=== PATIENT | female | born 1945 ===

== ENCOUNTER 2017-08-10 15:55 | Emergency (ER) | payer OTHER ==
[~2017-08-10] VITALS: Ht 162.6 cm; Wt 43.1 kg
[~2017-08-10 15:55] MED LIST: COZAAR25 MG; DIABETA2.5 MG; ETODOLAC400 MG; INTEGRA PLUS CAPSULE; LISINOPRIL-HCTZ1 TA1; METFORMIN HCL1000 MG; ZOCOR40 MG
[2017-08-10] MEDS ORDERED: LEVOTHYROXINE SO1 GM (16:13)
[2017-08-10] MEDS ORDERED: CLARITIN5 MG/5 ML (16:14)
[2017-08-10] MEDS ORDERED: NAMENDA1 EACH (16:14)
[2017-08-10] MEDS ORDERED: CLONAZEPAM1 M1 (16:14)
[2017-08-10] MEDS ORDERED: ASPIR 8181 MG (16:14)
== END 2017-08-11 09:52 | disposition home or self-care (01) ==
LOC: ER 15:55
DX: R41.0 Disorientation, unspecified (principal); T38.3X5A Adverse effect of insulin and oral hypoglycemic [antidiabetic] drugs, initial encounter; Y92.89 Other specified places as the place of occurrence of the external cause